=== PATIENT | female | born 1945 | race Caucasian/White ===

== ENCOUNTER → 2024-09-26 | Outpatient (CLI) | payer MEDICARE, SELFPAY ==
[2024-09-26 08:15] LABS: Collection Type, Urine Clean Catch
[2024-09-26 08:37] LABS: Basophils % (Auto) 1 % (0-2.5); Eosinophils # (Auto) 0.1 Thou/mm3 (0.0-0.5); Eosinophils % (Auto) 1 % (0-10); Hematocrit 41.3 % (36.0-46.0); Immature Granulocytes % (Auto) 0 % (0-0); Immature Granulocytes Auto 0.02 Thou/mm3 (0.00-0.00); Lymphocytes # (Auto) 1.7 Thou/mm3 (1.0-4.8); Lymphocytes % (Auto) 29 % (10-50); Mean Corpuscular HGB Conc 33.9 g/dl (31.0-37.0); Mean Corpuscular Hemoglobin 34.1 pg (25.0-35.0); Mean Corpuscular Volume 101 fL (80-100); Monocytes # (Auto) 0.6 Thou/mm3 (0.0-0.8); Monocytes % (Auto) 10 % (0-12); Neutrophils # (Auto) 3.4 Thou/mm3 (1.8-7.7); Neutrophils % (Auto) 59 % (37-80); Nucleated Red Blood Cell % 0 /100 WBC (0); Platelet Count 185 Thou/mm3 (140-440); RDW Standard Deviation 54.4 fL (36.4-46.3); Red Blood Count 4.11 Miln/mm3 (4.00-5.20); White Blood Count 5.7 Thou/mm3 (3.6-11.0)
[2024-09-26 08:40] LABS: Bilirubin,Urine Negative (Negative); Blood,Urine 3+ (Negative); Clarity,Urine Clear (Clear/Hazy); Color,Urine Lt-Yellow (Lt Yel-Yel); Glucose, Urine Negative (Negative); Ketones,Urine Negative (Negative); Leukocyte Esterase,Urine Negative (Negative); Nitrite,Urine Negative (Negative); PH,Urine 6.5 (5.0-7.0); Protein,Urine Negative (Neg - Trace); RBC,Urine 34 /hpf (0-3); Specific Gravity,Urine 1.018 (1.001-1.035); Squamous Epithelial Cell,Urine < 1 /hpf (0-5); Urobilinogen,Urine Negative mg/dL (0.0-1.0); WBC,Urine 2 /hpf (0-5)
[2024-09-26 08:53] LABS: Alanine Aminotransferase 12 U/L (10-49); Albumin, Serum 4.9 gm/dL (3.4-4.8); Albumin/Globulin Ratio 2.3 (1.2-2.2); Alkaline Phosphatase 69 U/L (46-116); Anion Gap 5 (7-16); Aspartate Amino Transferase 26 U/L (0-34); BUN/Creatinine Ratio 23 Ratio (12-20); Bilirubin,Total 0.6 mg/dL (0.3-1.2); Blood Urea Nitrogen 16 mg/dL (9-23); Calcium 10.6 mg/dL (8.3-10.6); Calcium (Corrected) 10.6 mg/dL (8.5-10.1); Carbon Dioxide 30.1 mMol/L (20.0-31.0); Cardiac Risk Estimate 2.7 RATIO (3.7-5.6); Chloride 102 mMol/L (98-107); Cholesterol 223 mg/dL (132-200); Creatinine (Component) 0.7 mg/dL (0.6-1.3); Globulin 2.1 gm/dL (2.3-3.5); Glucose 100 mg/dL (74-106); HDL Cholesterol 84 mg/dL (40-60); LDL Cholesterol,Calculated 128 mg/dL (0-130); Osmolality,Calculated 275 (275-295); Potassium 5.2 mMol/L (3.4-5.1); Sodium 137 mMol/L (136-145); Thyroid Stimulating Hormone 1.79 uIU/mL (0.55-4.78); Triglycerides 53 mg/dL (30-150); eGFR > 60 See Note
== END | disposition home or self-care (01) ==
LOC: COPL 07:32
PROVIDERS: PCP Family Medicine; Referring Provider Family Medicine; Visit Provider Family Medicine
DX: I10 Essential (primary) hypertension (principal)
CPT/HCPCS: 36415; 80053; 80061; 81001; 84443; 85025

== ENCOUNTER → 2024-11-06 | Outpatient (CLI) | payer MEDICARE, SELFPAY ==
--- NOTE | 2024-11-06 14:51 | XR_ITS ---
Examination: Thoracic spine 3 views INDICATIONS: AP lateral coned lateral upper dorsal spine 3 views Exam date and time: November 06, 2024 1359 hours Comparison July 14, 2020 INDICATIONS: Upper back pain beginning one week ago FINDINGS: Prominent osteopenia Thoracic dextroscoliosis 15 degrees Kyphosis dorsal spine secondary to chronic wedging of upper and lower dorsal vertebral bodies noted on the prior study No acute thoracic fracture IMPRESSION: Severe osteopenia Stable chronic osteoporotic wedging dorsal vertebral bodies No acute thoracic fracture Diffuse [id number] thoracic degenerative disc disease
== END | disposition home or self-care (01) ==
LOC: CDIM 14:42
PROVIDERS: PCP Family Medicine; Referring Provider Family Medicine; Visit Provider Family Medicine
DX: M85.88 Other specified disorders of bone density and structure, other site (principal); M81.8 Other osteoporosis without current pathological fracture; M51.34 Other intervertebral disc degeneration, thoracic region
CPT/HCPCS: 72070

== ENCOUNTER 2024-11-14 09:39 | Emergency (ER) | payer MEDICARE, SELFPAY ==
--- NOTE | 2024-11-14 09:45 | XR_ITS ---
Examination: CT brain head without contrast. 2-D sagittal coronal reconstructions Date and time of exam:November 14, 2024 0953 hours INDICATIONS: Onset dizziness today CTDI: vol (mGy):45 DLP: (mGycm):960 Technique: Multiple CT axial sections of the brain have been obtained, 5 mm slice thickness. Contrast has not been administered. 2-D sagittal, coronal reconstructions have been obtained Low dose protocols were performed. One or more of the following dose reduction techniques were used; automated exposure control, adjustment of the mA and/or KV according to patient size, use of iterative reconstruction technique. Findings: No significant ventricular enlargement. Intra-axial or extra-axial hemorrhage density is not seen. No mass effect or midline shift Basal cisterns are not remarkable. Fourth ventricle is midline. 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
--- NOTE | 2024-11-14 09:45 | PC.NURSE ---
KSENIA N/P CAME TO SEE PT AT THE TRIAGE DESK AND SAYS NO NEED TO CALL STROKE ALERT
--- NOTE | 2024-11-14 09:45 | XR_ITS ---
Examination: AP chest single view Technique one AP portable upright chest single view Exam date and time: November 14, 2024 1006 hours INDICATIONS: Chest pain today. FINDINGS: Moderate hyperexpansion Normal heart size No pneumonia or pulmonary edema IMPRESSION: COPD with moderate hyperexpansion
--- NOTE | 2024-11-14 09:45 | EKG_ITS ---
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
--- NOTE | 2024-11-14 09:45 | PD.EDRME ---
Rapid Medical Screening Exam RME Arrival date/time: 11/14/24 09:39 79-year-old female presents the emergency department with complaints of dizziness since 5 in the morning worsening with movement of head. Reports dizziness for approximately 10 days worsened today. I have greeted and performed a focused initial assessment of this patient. Initial appropriate labs ordered at this time. A comprehensive ED assessment and evaluation of the patient and analysis of all test and completion of medical decision making process will be conducted by additional ED provider. Chief Complaint: Dizziness Time Seen by Provider: 11/14/24 09:45
[2024-11-14 09:49] VITALS: BMI 23.3
[2024-11-14 09:54] VITALS: BP 160/104; PULSE 90; RESP 19; TEMP 36.6; O2SAT 98
--- NOTE | 2024-11-14 10:01 | PC.NURSE ---
PATIENT WITH COMPLAINT OF DIZZINESS, PATIENT STATES SHE HAS HAD INTERMITTENT EPISODES SINCE 11/04. PATIENT STATES SYMPTOMS ARE WORSE TODAY. PATIENT STATES THAT SHE HURT HER BACK ON 11/01 AND DIZZINESS STARTED A FEW DAYS LATER. PATIENT DENIES NAUSEA OR VOMITING. DAUGHTER AT BEDSIDE. PATIENT TAKEN TO CT VIA GURNEY.
[2024-11-14 10:02] LABS: Basophils # (Auto) 0.1 Thou/mm3 (0.0-0.2); Basophils % (Auto) 1 % (0-2.5); Eosinophils % (Auto) 1 % (0-10); Hematocrit 39.7 % (36.0-46.0); Hemoglobin 13.9 g/dL (12.0-16.0); Immature Granulocytes % (Auto) 0 % (0-0); Immature Granulocytes Auto 0.02 Thou/mm3 (0.00-0.00); Lymphocytes # (Auto) 1.9 Thou/mm3 (1.0-4.8); Lymphocytes % (Auto) 25 % (10-50); Mean Corpuscular Hemoglobin 33.5 pg (25.0-35.0); Mean Corpuscular Volume 96 fL (80-100); Monocytes # (Auto) 0.6 Thou/mm3 (0.0-0.8); Monocytes % (Auto) 7 % (0-12); Neutrophils % (Auto) 66 % (37-80); Nucleated Red Blood Cell % 0 /100 WBC (0); Platelet Count 282 Thou/mm3 (140-440); RDW Standard Deviation 48.5 fL (36.4-46.3); Red Blood Count 4.15 Miln/mm3 (4.00-5.20); White Blood Count 7.5 Thou/mm3 (3.6-11.0)
[2024-11-14 10:16] LABS: Partial Thromboplastin Time 27.2 Seconds (22.0-36.0); Prothrombin Time 11.4 Seconds (9.0-12.2)
[2024-11-14 10:21] LABS: Alanine Aminotransferase 29 U/L (10-49); Albumin, Serum 5.2 gm/dL (3.4-4.8); Albumin/Globulin Ratio 2.2 (1.2-2.2); Alkaline Phosphatase 83 U/L (46-116); Anion Gap 7 (7-16); BUN/Creatinine Ratio 23 Ratio (12-20); Bilirubin,Total 0.3 mg/dL (0.3-1.2); Blood Urea Nitrogen 16 mg/dL (9-23); Calcium 10.4 mg/dL (8.3-10.6); Calcium (Corrected) 10.4 mg/dL (8.5-10.1); Carbon Dioxide 30.8 mMol/L (20.0-31.0); Chloride 98 mMol/L (98-107); Creatinine (Component) 0.7 mg/dL (0.6-1.3); Estimated Creatinine Clearance 55.7 mL/min (>60); Globulin 2.4 gm/dL (2.3-3.5); Glucose 120 mg/dL (74-106); Osmolality,Calculated 274 (275-295); Potassium 3.8 mMol/L (3.4-5.1); Sodium 136 mMol/L (136-145); Total Protein 7.6 gm/dL (5.7-8.2); Troponin I < 0.020 ng/mL (0.0-0.045); eGFR > 60 See Note
--- NOTE | 2024-11-14 10:30 | PD.EDDIZZY ---
ED Dizzyness RME/HPI General Chief Complaint: Dizziness Stated Complaint: DIZZY SINCE 11/04, BACK INJURY 11/01 Time Seen by Provider: 11/14/24 09:45 Arrival date/time: 11/14/24 09:39 RME / HPI RME / HPI Narrative: 11/14/24 09:39 79-year-old female presents the emergency department with complaints of dizziness since 5 in the morning worsening with movement of head. Reports dizziness for approximately 10 days worsened today. I have greeted and performed a focused initial assessment of this patient. Initial appropriate labs ordered at this time. A comprehensive ED assessment and evaluation of the patient and analysis of all test and completion of medical decision making process will be conducted by additional ED provider. DR. LYNN MAIN ED EVALUATION 79 year old female with history of COPD, hypertrophic cardiomyopathy, atrial fibrillation on Eliquis, osteopenia presents to the ED for evaluation of intermittent dizziness beginning 10 days ago. Describes dizziness as room spinning sensation that lasts a few minutes. States she consulted with her PCP last week who diagnosed her with orthostatic hypotension and not started on any medications. States yesterday while watching TV she suddenly felt dizzy, lasting 20 minutes, and had improved after lying flat on the floor. Accompanied by feeling light headed. Patient additionally complains of back pain after kicking off her sheets 13 days ago. No falls/trauma. Denies LOC. Denies fevers, headaches, chest pain, abdominal pain. Related Data Home Medications ?Medication ?Instructions ?Recorded ?Confirmed amlodipine 5 mg tablet 5 mg PO BID 11/14/24 11/14/24 apixaban 5 mg tablet (Eliquis) 5 mg PO BID 11/14/24 11/14/24 Previous Rx's ?Medication ?Instructions ?Recorded ondansetron 4 mg disintegrating 4 mg PO Q4H PRN nausea and 11/14/24 tablet vomiting 3 days #10 tabs Allergies Allergy/AdvReac Type Severity Reaction Status Date / Time ampicillin Allergy Severe Rash Verified 11/14/24 09:44 azithromycin [From Zithromax] Allergy Severe Swelling Verified 11/14/24 09:44 of Lip/Tongue/Throat lisinopril Allergy Severe Swelling Verified 11/14/24 09:45 of Lip/Tongue/Throat losartan potassium Allergy Severe SOB, Verified 11/14/24 09:44 TACHYCARDIA naproxen [From Aleve] Allergy Severe Swelling Verified 11/14/24 09:44 of Lip/Tongue/Throat Review of Systems Review of Systems Narrative Review of Systems: GEN: No fever, no chills, no weight loss, +room spinning dizziness EYES: No discharge, no visual changes, no pain HEENT: No ear pain, no congestion, no sore throat PULM: No shortness of breath, no cough, no congestion CV: No chest pain, no dyspnea on exertion, no palpitations GI: No nausea, no vomiting, no diarrhea, no pain, no constipation : No frequency, no urgency and no dysuria MUSC/SKEL No joint pain SKIN: No rash NEURO: No weakness, no headache Past Medical History Past Medical History CARDIAC: Negative Congestive Heart Failure RESPIRATORY: Negative Chronic Obstructive Pulmonary Disease (COPD) GENITOURINARY: Negative Renal Disease ENDOCRINE: Negative Diabetes Mellitus Type 1 or Diabetes Mellitus Type 2 Social History SMOKING STATUS: Heavy (> 1 pack/day) SUBSTANCE USE: does not use ED Exam Narrative Physical exam: GENERAL APPEARANCE: Well hydrated, well nourished, in no acute distress. VITALS: All vitals were reviewed and the pulse ox is 98% on room air which is normal according to my interpretation. HEENT: Normocephalic, atramatic, EOMI, EACs are patent. There is no bulge or retraction. Throat without erythema or exudate. Moist oromucosa. No jaundice NECK: Supple, no JVD or bruits. CARDIOVASCULAR: Heart regular without S3-S4 or murmur. No rubs or gallops. LUNGS/CHEST: Clear to auscultation bilaterally. No rales, rhonchi, or wheezing. Normal inspection. ABDOMEN: Soft, nontender, with normal bowel sounds. No pulsatile masses. No rebound, rigidity, or guarding. No incarcerated hernia. Normal inspection and palpation. EXTREMITIES: Normal inspection and palpation. No edema, clubbing, or cyanosis. Intact CSM SKIN: Warm and dry without rashes. Normal inspection. MUSCULOSKELETAL: Normal inspection. No gross deformity, full ROM all extremities NEURO: Alert and oriented x3. Cranial nerves II through XII grossly intact. There are no other motor or sensory deficits noted. PSYCHIATRIC: Normal mood and affect. 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 Care 11/14/24 09:45 Active EKG (ED ONLY) *Do not use* NOW Care 11/14/24 09:[address] head/brain wo con Stat Exams 11/14/24 09:45 Completed EKG (ED Only) Stat Exams 11/14/24 09:45 Draft XR chest 1V portable Stat Exams 11/14/24 09:45 Completed CBC Stat Lab 11/14/24 09:56 Completed Comprehensive Metabolic Panel Stat Lab 11/14/24 09:56 Completed Drug Screen,Urine Stat Lab 11/14/24 10:46 Completed Partial Thromboplastin Time Stat Lab 11/14/24 09:56 Completed Prothrombin Time with INR Stat Lab 11/14/24 09:56 Completed Troponin I Stat Lab 11/14/24 09:56 Completed Urinalysis Stat Lab 11/14/24 10:46 Completed Ondansetron Odt [Zofran Odt] Med 11/14/24 10:41 Discontinued 4 mg PO X1 ONE Sodium Chloride 0.9% 500 ml [Ns] 500 ml Med 11/14/24 10:42 Discontinued IV 999 mls/hr Vital Signs Vital signs: Vital Signs Temperature 97.9 F 11/14/24 09:54 Pulse Rate 90 11/14/24 09:54 Respiratory Rate 19 11/14/24 09:54 Blood Pressure 160/104 H 11/14/24 09:54 Pulse Oximetry (%) 98 11/14/24 09:54 Oxygen Delivery Method Room Air 11/14/24 09:54 Dizziness MDM Narrative MDM Narrative:: IMagnolia, yomi scribing for and in the presence of Dr. Lynn. CBC negative. CMP negative. Troponin negative. UA negative. Toxicology negative. Twelve-lead EKG that was done at 10:13 AM interpreted by me: Atrial fibrillation. Heart rate of 67. Normal axis. No ST elevation or depression. No PVC. No STEMI. Chest x-ray reviewed by and interpreted by me: Clear lungs. Heart normal. Mediastinum normal. Normal bones. CT head reviewed by and interpreted by me: No bleed. No mass. No shifting. No swelling. Normal ventricle. There is a tiny spot on the right temporal skull to be evelio, I do not know what it is but Dr. Ivan recommended the patient to have complete whole-body bone scan as an outpatient. I mentioned that to the patient and her family member. I even gave them the copy of the CT report to follow-up with PMD to obtain the bone scan. And they agreed to do so. In the emergency department the patient was given IV fluid and also Zofran for nausea and dizziness with good result. There is no neurological deficit. Patient data External records reviewed:: [facility] previous records (I reviewed ED visit on 07/05/2024) Clinical information provided by:: patient Social determinants that could affect healthcare access:: none Patient has the following chronic illnesses:: COPD, hypertrophic cardiomyopathy, atrial fibrillation on Eliquis, osteopenia How is presenting disease/condition affected by chronic disease/condition?: exacerbated by Evaluation data The following diagnostics were reviewed and interpreted by me:: lab results, radiology exam(s) and EKG tracing(s) Lab and/or radiology exams considered but not ordered:: None Interpretation Summary: Ordering Physician: Vaishnavi Ware Date of Service: 11/14/24 Procedure(s): CT head/brain wo [facility] Accession Number(s): [id number] cc: Francisco Javier Steve MD; Vaishnavi Ware~ Examination: CT brain head without contrast. 2-D sagittal coronal reconstructions Date and time of exam:November 14, 2024 0953 hours INDICATIONS: Onset dizziness today CTDI: vol (mGy):45 DLP: (mGycm):960 Technique: Multiple CT axial sections of the brain have been obtained, 5 mm slice thickness. Contrast has not been administered. 2-D sagittal, coronal reconstructions have been obtained Low dose protocols were performed. One or more of the following dose reduction techniques were used; automated exposure control, adjustment of the mA and/or KV according to patient size, use of iterative reconstruction technique. Findings: No significant ventricular enlargement. Intra-axial or extra-axial hemorrhage density is not seen. No mass effect or midline shift Basal cisterns are not remarkable. Fourth ventricle is midline. 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 Dictated By: Francisco Javier Steve MD Signed By: <Electronically signed by Francisco Javier Steve MD in OV> 11/14/24 1027 Ordering Physician: Vaishnavi Ware Date of Service: 11/14/24 Procedure(s): XR chest 1V portable Accession Number(s): [id number] cc: Francisco Javier Steve MD; Vaishnavi Ware~ Examination: AP chest single view Technique one AP portable upright chest single view Exam date and time: November 14, 2024 1006 hours INDICATIONS: Chest pain today. FINDINGS: Moderate hyperexpansion Normal heart size No pneumonia or pulmonary edema IMPRESSION: COPD with moderate hyperexpansion Dictated By: Francisco Javier Steve MD Signed By: <Electronically signed by Francisco Javier Steve MD in OV> 11/14/24 1039 Medications / Prescriptions Medications or Prescriptions considered but not ordered:: None Medication administrations:: Medication Administration History Discontinued Medications Sodium Chloride (Ns) 500 mls @ 999 mls/hr IV .Q31M ONE Stop: 11/14/24 11:12 Last Infusion: 11/14/24 11:52 Dose: Infused Documented By: Admin: 11/14/24 11:16 Dose: 999 mls/hr Documented By: MAHENDRA Ondansetron HCl (Ondansetron Odt 4 Mg Tabrap) 4 mg PO X1 ONE; Protocol Stop: 11/14/24 10:42 Last Admin: 11/14/24 11:16 Dose: 4 mg Documented By: MAHENDRA See above Consultations Consultation(s) initiated? (list below): No Diagnosis Dizziness Differential Diagnosis: benign paroxysmal positional vertigo, orthostatic hypotension, cerebrovascular accident and transient cerebral ischemia Most likely diagnosis given after review of the tests above:: Vertigo Admission Indicated Admission indicated?: not indicated Admission Request Was there a request for admission?: No Disposition Plan Disposition Plan: Discharge Discharge Attestation Discharge Attestation: The patient and all family members were given an opportunity to ask questions and understood the discharge instructions. Discharge instructions specifically effects, indications for sooner follow up or return to the emergency department, and the expected course of current diagnosis. Patient condition: Stable Discharge Plan Plan Patient Disposition: HOME (Self Care) Disposition Comment: Stable and improved Prescriptions/Referrals Prescriptions/Med Rec: New ondansetron 4 mg tablet,disintegrating 4 mg PO Q4H PRN (Reason: nausea and vomiting) 3 Days Qty: 10 0RF Rx Instructions: 1st dose 1-2 hr before radiation No Action amlodipine 5 mg Tablet 5 mg PO BID Eliquis 5 mg Tablet 5 mg PO BID Referrals: Debbie Riggs MD [Primary Care Provider] - In 1 week Problem List Clinical Impression: Benign paroxysmal positional vertigo Patient/Caregiver Discharge Instructions Education Materials: ED Vertigo, Unspecified Additional Instructions: Rest. No driving. No operating heavy equipments. Follow-up with your medical doctor in the next week for further care. Please show your doctor copy of the CT brain report that I gave you. Radiologist recommended complete body bone scan. Please discuss with your medical doctor about such. Return the nearest ER if condition worsens or if new symptoms develop. Print Language: Uzbek Stand Alone Forms: Jodi Award Info., Patient Portal Info Letter
[2024-11-14 10:38] VITALS: PULSE 67
[2024-11-14 10:51] LABS: Collection Type, Urine Clean Catch
[2024-11-14 11:08] LABS: Aspartate Amino Transferase 25 U/L (0-34)
[2024-11-14 11:12] LABS: Amphetamine/Methamp Scrn,U Negative (Negative); Barbiturate Screen,Urine Negative (Negative); Benzodiazepines Screen,Urine Negative (Negative); Benzoylecgonine Screen, Ur Negative (Negative); Fentanyl Screen,Urine Negative (Negative); Opiate Screen,Urine Negative (Negative); THC Screen,Urine Negative (Negative)
[2024-11-14] MEDS: ONDANSETRON ODT 4 MG TABRAP PO (11:16)
[2024-11-14] MEDS: SODIUM CHLORIDE 0.9% 500 ML 500 ML 999 ML IV (11:16)
[2024-11-14 11:17] LABS: Bacteria,Urine Rare; Bilirubin,Urine Negative (Negative); Blood,Urine 2+ (Negative); Clarity,Urine Clear (Clear/Hazy); Color,Urine Lt-Yellow (Lt Yel-Yel); Glucose, Urine Negative (Negative); Ketones,Urine Negative (Negative); Leukocyte Esterase,Urine Negative (Negative); Nitrite,Urine Negative (Negative); Protein,Urine Negative (Neg - Trace); RBC,Urine 16 /hpf (0-3); Specific Gravity,Urine 1.012 (1.001-1.035); Squamous Epithelial Cell,Urine 1 /hpf (0-5); Urobilinogen,Urine Negative mg/dL (0.0-1.0); WBC,Urine 2 /hpf (0-5)
[2024-11-14 12:17] VITALS: BP 154/92; PULSE 68; RESP 16; O2SAT 98
== END 2024-11-14 12:20 | disposition home or self-care (01) ==
PROVIDERS: Nurse Practitioner Primary Care; Emergency Provider Emergency Medicine; PCP Family Medicine
DX: H81.10 Benign paroxysmal vertigo, unspecified ear (principal); I42.2 Other hypertrophic cardiomyopathy; J44.9 Chronic obstructive pulmonary disease, unspecified; I48.91 Unspecified atrial fibrillation; Z79.01 Long term (current) use of anticoagulants
CPT/HCPCS: 36415; 70450; 71045; 80053; 80307; 81001; 84484; 85025; 85610; 85730; 93005; 96360; 99284; J7040; Q0162

== ENCOUNTER → 2025-08-31 | Outpatient (CLI) | payer MEDICARE, SELFPAY ==
[2025-08-31 08:09] LABS: Collection Type, Urine Clean Catch
[2025-08-31 08:34] LABS: Basophils # (Auto) 0.0 Thou/mm3 (0.0-0.2); Basophils % (Auto) 1 % (0-2.5); Eosinophils # (Auto) 0.1 Thou/mm3 (0.0-0.5); Eosinophils % (Auto) 1 % (0-10); Hematocrit 40.8 % (36.0-46.0); Hemoglobin 14.0 g/dL (12.0-16.0); Immature Granulocytes Auto 0.02 Thou/mm3 (0.00-0.00); Lymphocytes # (Auto) 1.7 Thou/mm3 (1.0-4.8); Lymphocytes % (Auto) 31 % (10-50); Mean Corpuscular HGB Conc 34.3 g/dl (31.0-37.0); Mean Corpuscular Hemoglobin 34.6 pg (25.0-35.0); Mean Corpuscular Volume 101 fL (80-100); Monocytes # (Auto) 0.5 Thou/mm3 (0.0-0.8); Monocytes % (Auto) 9 % (0-12); Neutrophils # (Auto) 3.2 Thou/mm3 (1.8-7.7); Neutrophils % (Auto) 58 % (37-80); Nucleated Red Blood Cell # 0.00 Thou/mm3 (0.00-0.00); Nucleated Red Blood Cell % 0 /100 WBC (0); Platelet Count 183 Thou/mm3 (140-440); RDW Standard Deviation 51.8 fL (36.4-46.3); Red Blood Count 4.05 Miln/mm3 (4.00-5.20); White Blood Count 5.5 Thou/mm3 (3.6-11.0)
[2025-08-31 08:41] LABS: Bilirubin,Urine Negative (Negative); Blood,Urine 2+ (Negative); Clarity,Urine Clear (Clear/Hazy); Color,Urine Lt-Yellow (Lt Yel-Yel); Glucose, Urine Negative (Negative); Hyaline Casts,Urine 1 /hpf (0-1); Ketones,Urine Negative (Negative); Leukocyte Esterase,Urine Negative (Negative); Nitrite,Urine Negative (Negative); PH,Urine 6.5 (5.0-7.0); Protein,Urine Negative (Neg - Trace); RBC,Urine 10 /hpf (0-3); Specific Gravity,Urine 1.012 (1.001-1.035); Squamous Epithelial Cell,Urine 2 /hpf (0-5); Urobilinogen,Urine Negative mg/dL (0.0-1.0); WBC,Urine 1 /hpf (0-5)
[2025-08-31 08:55] LABS: Alanine Aminotransferase 18 U/L (10-49); Albumin, Serum 4.6 gm/dL (3.4-4.8); Albumin/Globulin Ratio 2.1 (1.2-2.2); Alkaline Phosphatase 68 U/L (46-116); Anion Gap 7 (7-16); Aspartate Amino Transferase 28 U/L (0-34); BUN/Creatinine Ratio 15 Ratio (12-20); Bilirubin,Total 0.5 mg/dL (0.3-1.2); Blood Urea Nitrogen 12 mg/dL (9-23); Calcium 10.2 mg/dL (8.3-10.6); Calcium (Corrected) 10.2 mg/dL (8.5-10.1); Carbon Dioxide 28.0 mMol/L (20.0-31.0); Cardiac Risk Estimate 2.6 RATIO (3.7-5.6); Chloride 106 mMol/L (98-107); Cholesterol 215 mg/dL (132-200); Creatinine (Component) 0.8 mg/dL (0.6-1.3); Globulin 2.2 gm/dL (2.3-3.5); Glucose 100 mg/dL (74-106); HDL Cholesterol 83 mg/dL (40-60); LDL Cholesterol,Calculated 118 mg/dL (0-130); Osmolality,Calculated 280 (275-295); Potassium 4.4 mMol/L (3.4-5.1); Sodium 141 mMol/L (136-145); Thyroid Stimulating Hormone 2.27 uIU/mL (0.55-4.78); Total Protein 6.8 gm/dL (5.7-8.2); Triglycerides 71 mg/dL (30-150); eGFR > 60 See Note
[2025-08-31 09:01] LABS: Vitamin D 25 Hydroxy Total 42.9 ng/mL (7.3-40.2)
== END | disposition home or self-care (01) ==
LOC: COPL 07:28
PROVIDERS: PCP Family Medicine; Referring Provider Family Medicine; Visit Provider Family Medicine
DX: J44.9 Chronic obstructive pulmonary disease, unspecified (principal); I10 Essential (primary) hypertension; M81.0 Age-related osteoporosis without current pathological fracture
CPT/HCPCS: 36415; 80053; 80061; 81001; 82306; 84443; 85025

== ENCOUNTER → 2025-11-18 | Outpatient (CLI) | payer MEDICARE, SELFPAY ==
--- NOTE | 2025-11-18 09:15 | XR_ITS ---
Examination: Screening digital mammography, bilateral Computer aided detection 3-D breast Tomosynthesis, bilateral Date and time of exam: November 18, 2025, 0853 hours, compared to mammograms dating to March 01, 2016 Indication: Screening Technique: Nonmagnified MLO, CC views of the breasts to been obtained, reconstructed from 3-D Tomosynthesis images. R2 computer aided detection program utilized for evaluation of suspicious masses and/or abnormal calcifications. 3-D Tomosynthesis images obtained. Findings: Scattered areas of fibroglandular density. Benign calcifications. No interval suspicious mass Impression: BI-RADS category II: Benign Findings. Recommend 1 year follow-up mammogram.
== END | disposition home or self-care (01) ==
LOC: CDIM 08:48
PROVIDERS: Referring Provider Family Medicine; Visit Provider Family Medicine
DX: Z12.31 Encounter for screening mammogram for malignant neoplasm of breast (principal); R92.323 Mammographic fibroglandular density, bilateral breasts; R92.1 Mammographic calcification found on diagnostic imaging of breast
CPT/HCPCS: 77063; 77067